=== PATIENT | female | born 1940 | race Caucasian/White ===

== ENCOUNTER 2016-12-16 08:35 | Outpatient (CLI) | payer OTHER | END 2016-12-16 08:36 | disposition home or self-care (01) | DX: Z13.820 Encounter for screening for osteoporosis (principal); M81.0 Age-related osteoporosis without current pathological fracture ==

== ENCOUNTER 2016-12-16 08:36 | Outpatient (CLI) | payer OTHER | END 2016-12-16 08:37 | disposition home or self-care (01) | DX: Z12.31 Encounter for screening mammogram for malignant neoplasm of breast (principal) ==

== ENCOUNTER 2017-03-02 11:03 | Outpatient (CLI) | payer OTHER ==
--- NOTE | 2017-03-02 17:48 | CT Report ---
CT SINUSES WITHOUT CONTRAST: 03/02/2017 CLINICAL INDICATION: Sinus pressure, pain, history of nasal polyp. Axial CT images of the paranasal sinuses were obtained without contrast, following which sagittal and coronal reconstructions were performed. In accordance with CT protocol optimization, one or more of the following dose reduction techniques w ere utilized for this exam: automated exposure control, adjustment of mA and/or KV based on patient size, or use of iterative reconstructive technique. There is minimal mucosal thickening in the inferior left maxillary sinus. Previously seen right maxi llary sinus disease has resolved. The frontal, ethmoid, and sphenoid sinuses are clear. The ostiome atal units are patent. The nasal septum is midline. The visualized intraorbital contents are unrema rkable. No osseous destruction is seen. IMPRESSION: MINIMAL LEFT MAXILLARY MUCOSAL THICKENING, COMPATIBLE WITH CHRONIC SINUS DISEASE. JOB #: [id number] EXT JOB #:[id number]
== END 2017-03-02 11:04 | disposition home or self-care (01) ==
LOC: DI 11:03
PROVIDERS: ATTEND Physician Assistant
DX: R51 Headache (principal)
CPT/HCPCS: 70486

== ENCOUNTER 2017-07-26 21:07 | Outpatient (CLI) | payer OTHER ==
--- NOTE | 2017-07-26 22:20 | Ultrasound Preliminary Report ---
Exam: US DUPLEX EXT VEINS RIGHT IMPRESSION: 1. No right lower extremity deep venous thrombosis. 2. 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 Consider further characterization with MRI in se tting of growth or pain. [facility] SITE ID: [id number]
--- NOTE | 2017-07-26 22:22 | Ultrasound Report ---
EXAM: RIGHT LOWER EXTREMITY VENOUS ULTRASOUND EXAM DATE: 07/26/2017 10:00 PM. CLINICAL HISTORY: R CALF PAIN,SUPERFICIAL THROMBUS. COMPARISON: None. TECHNIQUE: Real-time sonographic vascular imaging was performed by the commissioner of relocation services through the lower extremity utilizing both color-flow and Doppler spectral analysis. Multiple consumer sales representative static rigoberto ges were saved for review. FINDINGS: Common Femoral Vein (CFV): Normal. CFV-GSV Junction: Normal. Profunda Femoral Vein (PFV): Normal. Femoral Vein (FV) Prox: Normal. Femoral Vein (FV) Mid: Normal. Femoral Vein (FV) Dist: Normal. Popliteal Vein: Normal. Posterior Tibial Veins: Normal. Peroneal Veins: Normal. Contralateral Side CFV: Normal. Other: There is an avascular, ill-defined 2.4 x 0.9 x 2 cm hyperechoic soft tissue focus posterior me dial aspect of the knee. IMPRESSION: 1. No right lower extremity deep venous thrombosis. 2. 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 Consider further characterization with MRI in se tting of growth or pain. [facility] Referring Provider Line: [phone] SITE ID: [id number]
== END 2017-07-26 21:08 | disposition home or self-care (01) ==
LOC: DI 21:07
PROVIDERS: ATTEND Registered Nurse
DX: M79.661 Pain in right lower leg (principal)

== ENCOUNTER 2017-08-12 11:34 | Outpatient (CLI) | payer OTHER ==
--- NOTE | 2017-08-12 17:56 | XRAY Report ---
DATE OF SERVICE: 08/12/2017 EXAM: THREE VIEW BILATERAL KNEES: 08/12/2017 CLINICAL INDICATION: Pain. COMPARISON: 01/07/2016 bilateral four view knees. FINDINGS: AP, lateral, and sunrise views of the bilateral knees were obtained. 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 There is no evidence of fracture or hardware c omplication. No effusion is present on either side. IMPRESSION: STABLE BILATERAL KNEE REPLACEMENTS. NO EVIDENCE OF FRACTURE OR HARDWARE COMPLICATION. TD: 08/12/2017 17:01
== END 2017-08-12 11:35 | disposition home or self-care (01) ==
LOC: DI.S 11:34
PROVIDERS: ATTEND Registered Nurse
DX: M25.562 Pain in left knee (principal); Z96.653 Presence of artificial knee joint, bilateral

== ENCOUNTER 2018-03-28 08:32 | Outpatient (CLI) | payer OTHER ==
[2018-03-28 11:51] LABS: CREATININE 0.8 mg/dL (0.4-1.0)
== END 2018-03-28 08:33 | disposition home or self-care (01) ==
LOC: LAB.F 08:32
PROVIDERS: ATTEND Podiatrist
DX: Z01.818 Encounter for other preprocedural examination (principal)
CPT/HCPCS: 36415; 82565; 85014; 85027

== ENCOUNTER 2018-08-01 09:58 | Outpatient (CLI) | payer OTHER ==
--- NOTE | 2018-08-01 17:57 | MRI Report ---
Reason: CERVICALGIA Procedure Date: 08/01/2018 Accession Number: [id number] / [id number] Procedure: MRI - Cervical Spine W/O CPT Code: FULL RESULT: EXAM: MRI CERVICAL SPINE WITHOUT CONTRAST EXAM DATE: 08/01/2018 10:58 AM. CLINICAL HISTORY: CERVICALGIA. COMPARISONS: None. TECHNIQUE: Multiplanar, multisequence T1-weighted and fluid-sensitive sequences of the cervical spine without contrast. Other: None. FINDINGS: Neurologic Structures: The visualized posterior fossa structures are unremarkable. No signal abnormality in the visualized spinal cord. Alignment: Slight straightening of the normal cervical lordosis. No definite spondylolisthesis. Bone Marrow: No gross fractures or bone lesions. No marrow edema. Interspace Levels/Facets: Mild endplate degenerative change with mild loss of disk height and disk desiccation seen throughout the cervical spine greatest at C5-C6. C1-C2: Unremarkable. C2-C3: Tiny to small posterior disk osteophyte complex. No spinal canal stenosis. No definite neural foraminal narrowing. C3-C4: Small posterior disk osteophyte complex. Bilateral uncovertebral osteophyte and arthritic facet disease. Mild spinal canal stenosis. Mild left neural foraminal narrowing. C4-C5: Small posterior disk osteophyte complex that abuts the ventral aspect of the cervical cord. Bilateral uncovertebral osteophyte and arthritic facet disease. Mild to moderate spinal canal stenosis. Moderate right and mild to moderate left neural foraminal narrowing. C5-C6: Small to moderate broad-based disk osteophyte complex that abuts the ventral aspect of the cervical cord. Bilateral uncovertebral osteophyte and arthritic facet disease. Mild to moderate spinal canal stenosis. Moderate to severe bilateral neural foraminal narrowing. C6-C7: Small posterior disk osteophyte complex. Bilateral uncovertebral osteophyte and arthritic facet disease. Mild spinal canal stenosis. Moderate to severe right and moderate left neural foraminal narrowing. C7-T1: Unremarkable. Musculature: Normal. No edema or fatty atrophy. Other: The paravertebral and prevertebral soft tissues are normal. IMPRESSION: 1. Slight straightening of the normal cervical lordosis. 2. Multilevel degenerative changes. C3-C4: Mild spinal canal stenosis. Mild left neural foraminal narrowing. C4-C5: Mild to moderate spinal canal stenosis. Moderate right and mild to moderate left neural foraminal narrowing. C5-C6: Mild to moderate spinal canal stenosis. Moderate to severe bilateral neural foraminal narrowing. C6-C7: Mild spinal canal stenosis. Moderate to severe right and moderate left neural foraminal narrowing. [facility]
== END 2018-08-01 09:59 | disposition home or self-care (01) ==
LOC: DI 09:58
PROVIDERS: ATTEND Registered Nurse
DX: M50.31 Other cervical disc degeneration, high cervical region (principal); M47.9 Spondylosis, unspecified; M48.02 Spinal stenosis, cervical region
CPT/HCPCS: 72141

== ENCOUNTER 2021-07-10 11:01 | Outpatient (CLI) | payer OTHER ==
--- NOTE | 2021-07-12 06:57 | XRAY Report ---
PROCEDURE: Shoulder 3 View RT INDICATIONS: PAIN IN RIGHT SHOULDER TECHNIQUE: 3 views of the shoulder were acquired. COMPARISON: None. FINDINGS: Bones: No fractures or dislocations. There is a lytic lesion with sclerotic margin seen involving me dial cortex of proximal right humeral shaft with increased sclerosis and mild adjacent cortical thick ening. This was seen in 2016 chest radiograph and is unchanged in size. Visualized ribs appear intact . Soft tissues: No suspicious soft tissue calcifications. IMPRESSION: Moderate right shoulder joint osteoarthritis. No acute fracture or dislocation. Moderate right acromioclavicular joint and glenohumeral joint osteoarthritic changes are seen. Indeterminant lytic lesion involving medial cortex of proximal right humeral shaft with interval increased sclerosi s in this area. Finding could represent benign process such as nonossifying fibroma. Clinical correla tion is recommended. If indicated, MRI of right humerus can be done without and with contrast for fur ther evaluation of this area. Reviewed by: Chan Mueller MD on 07/10/2021 1:55 PM PST Approved by: Chan Mueller MD on 07/10/2021 1:55 PM PST Station ID: [id number]
== END 2021-07-10 11:02 | disposition home or self-care (01) ==
LOC: DI 11:01
PROVIDERS: ATTEND Registered Nurse
DX: M19.011 Primary osteoarthritis, right shoulder (principal); M89.9 Disorder of bone, unspecified

== ENCOUNTER 2021-08-03 10:46 | Outpatient (CLI) | payer OTHER ==
[2021-08-03] MEDS ORDERED: GADOBUTROL 10 MMOL/10 ML VIAL ONE (10:58)
--- NOTE | 2021-08-03 14:02 | MRI Report ---
PROCEDURE: Upper Arm/Humerus RT W/WO INDICATIONS: LYTIC LESION OF BONE TECHNIQUE: Noncontrast coronal T1 spin echo and STIR; coronal T1 VISTA SPAIR; sagittal STIR; axial T1 spin echo and T2 fast spin echo with fat saturation through the right humerus. After the administration of int ravenous contrast material, additional sequences were obtained including: axial in and out of phase T 1 spin echo, sagittal T1 spin echo with fat saturation, and coronal T1 VISTA SPAIR. COMPARISON: Shoulder radiographs 07/10/2021 FINDINGS: Image quality: Excellent. Bones: Focal cortical irregularity is seen at the proximal humeral diaphysis, at the site of the shadi ent lesion seen on prior radiographs from 07/10/2021. There is mild focal osseous enhancement at this lesion without associated edema. Findings are suspected to the secondary to a prior subpectoral mounika ps tenodesis. The visualized bone marrow demonstrates normal signal on all sequences. No acute trabec ular bone injury. Soft tissues: The proximal portion of the biceps long head tendon is not seen, most likely secondary to prior tenodesis. Portion of the biceps tendon appears to be continuous with the bone lesion in th e humerus. The shoulder structures are not well visualized, as this is not a detailed evaluation of t he shoulder. The scanned muscles demonstrate normal overall bulk and internal signal. Subcutaneous t issues appear normal as well. No enhancing soft tissue masses are present. IMPRESSION: Focal osseous lesion in the proximal humeral diaphysis as seen on prior radiographs, which appears to be continuous with the biceps long head tendon, most likely represents postsurgical changes related to a prior subpectoral biceps tenodesis. There is no associated osseous edema. No separate osseous ma ss is seen. No suspicious soft tissue enhancement. Recommend correlation with surgical history and pr ior operative notes. Reviewed by: Alfa Calloway MD on 08/03/2021 2:01 PM PST Approved by: Alfa Calloway MD on 08/03/2021 2:01 PM PST Station ID: [id number]
[2021-08-03] MEDS ORDERED: GADOBUTROL 10 MMOL/10 ML VIAL IVP ONE (16:19)
== END 2021-08-03 10:47 | disposition home or self-care (01) ==
LOC: DI 10:46
PROVIDERS: ATTEND Registered Nurse
DX: M89.9 Disorder of bone, unspecified (principal)
CPT/HCPCS: 73220; A9585

== ENCOUNTER 2021-11-08 22:23 | Emergency (ER) | payer OTHER ==
[2021-11-08 22:44] LABS: BASOPHILS % (AUTO) 0.4 %; EOSINOPHILS # (AUTO) 0.2 10^3/uL (0.0-0.7); EOSINOPHILS % (AUTO) 2.7 %; HCT - HEMATOCRIT 42.6 % (37.0-47.0); HGB - HEMOGLOBIN 13.6 g/dL (12.0-16.0); LYMPHOCYTES # (AUTO) 3.2 10^3/uL (1.5-3.5); MEAN CORPUSCULAR HEMOGLOBIN 29.2 pg (27.0-31.0); MEAN CORPUSCULAR HGB CONC 31.9 g/dL (32.0-36.0); MEAN CORPUSCULAR VOLUME 91.6 fL (81.0-99.0); MEAN PLATELET VOLUME 10.3 fL (7.9-10.8); MONOCYTES # (AUTO) 0.8 10^3/uL (0.0-1.0); MONOCYTES % (AUTO) 10.2 %; NEUTROPHILS # (AUTO) 3.9 10^3/uL (1.5-6.6); NEUTROPHILS % (AUTO) 47.6 %; PLT - PLATELET COUNT 261 10^3/uL (130-450); RED BLOOD COUNT 4.65 10^6/uL (4.20-5.40); RED CELL DISTRIBUTION WIDTH 14.8 % (12.0-15.0); WHITE BLOOD COUNT 8.1 x10^3/uL (4.8-10.8)
[2021-11-08] MEDS ORDERED: SODIUM CHLORIDE 0.9% 1,000 ML IV STA (22:48)
[2021-11-08 22:57] LABS: ALBUMIN 3.9 g/dL (3.2-5.5); ALBUMIN/GLOBULIN RATIO 1.3 (1.0-2.2); ALKALINE PHOSPHATASE 65 IU/L (42-121); ALT ALANINE AMINOTRANSFERASE < 10 IU/L (10-60); AST ASPARTATE AMINOTRANSFERASE 19 IU/L (10-42); BILIRUBIN,TOTAL 0.4 mg/dL (0.2-1.0); BUN - BLOOD UREA NITROGEN 24 mg/dL (6-20); CALCIUM 8.6 mg/dL (8.5-10.3); CARBON DIOXIDE - CO2 22 mmol/L (21-32); CHLORIDE 106 mmol/L (101-111); CREATININE 0.9 mg/dL (0.4-1.0); GFR - MDRD 60 (>89); GLUCOSE 127 mg/dL (70-100); LIPASE 25 U/L (22-51); POTASSIUM 4.2 mmol/L (3.5-5.0); SODIUM 140 mmol/L (135-145); TOTAL PROTEIN 6.9 g/dL (6.7-8.2)
--- NOTE | 2021-11-08 23:20 | ED Physician Documentation ---
PD HPI FOCAL NEURO - Stated complaint Stated Complaint: WEAKNESS - Chief complaint Chief Complaint: Neuro - History obtained from History obtained from: Patient, Family - History of Present Illness Timing - onset: How many days ago (3) Timing - duration: Days (3) Timing - details: Gradual onset, Still present Severity of deficit: Moderate Weakness: Face, Arm, Leg, Left Numbness: No: Face, Arm, Hand, Leg, Foot, Right, Left Associated symptoms: No: Headache, Nausea / vomiting, Seizure, Syncope, Fall, Head injury, Chest pain, Neck pain, Back pain, Fever Baseline status: positive: A&OX3, ambulatory, indep Similar symptoms before: Has not had sx before Recently seen: Not recently seen - Additional information Additional information: Previously well 81-year-old female with a history of Parkinson's disease noticed at that her left leg was dragging a bit about 3 days ago. She thought maybe she had hurt herself or was standing for too long. She noticed some weakness to her left arm and hand yesterday. Today her daughter arrived back home and noticed a facial droop. The patient has no speech difficulty and she otherwise feels well. She has not recently been ill. Review of Systems Constitutional: denies: Fever Eyes: denies: Loss of vision, Decreased vision Ears: denies: Ear pain Nose: denies: Rhinorrhea / runny nose, Congestion Throat: denies: Sore throat Cardiac: reports: Calf pain (Cramping to the left leg 3 days ago). denies: Chest pain / pressure, Palpitations, Pedal edema Respiratory: denies: Dyspnea GI: denies: Abdominal Pain, Nausea, Vomiting, Constipation, Diarrhea : denies: Dysuria, Frequency Skin: denies: Rash Musculoskeletal: denies: Neck pain, Back pain, Extremity pain Neurologic: reports: Focal weakness. 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: Other HEENT: Cataracts - Present Medications Home Medications: Ambulatory Orders Medication Instructions Recorded Confirmed Ldopa-Cdopa [id number] 01/26/16 Meloxicam 7.5 mg PO DAILY 01/26/16 01/26/16 Oxybutynin [Ditropan] 5 mg PO DAILY 01/26/16 01/26/16 Oxycodone HCl/Acetaminophen 1 - 2 tab PO Q4H PRN #20 tablet 01/26/16 [Percocet 5-325 mg Tablet] Pantoprazole Sodium 40 mg PO DAILY 01/26/16 01/26/16 Sertraline HCl 100 mg PO DAILY 01/26/16 01/26/16 Trazodone HCl 50 mg PO DAILY 01/26/16 01/26/16 - Allergies Allergies/Adverse Reactions: Allergies Allergy/AdvReac Type Severity Reaction Status Date / Time No Known Drug Allergies Allergy Verified 11/08/21 22:35 - Social History Does the pt smoke?: No Smoking Status: Never smoker Does the pt drink ETOH?: No Does the pt have substance abuse?: No - Immunizations Immunizations are current?: Yes - POLST Patient has POLST: No PD ED PE NORMAL - Vitals Vital signs reviewed: Yes (Hypertensive mild) - General General: Alert and oriented X 3, No acute distress, Well developed/nourished, O ther (No evidence of speech latency or delay in execution of motor commands.) - HEENT HEENT: Atraumatic, PERRL, EOMI, Other (81-year-old female with an obvious left facial droop that is mild. She is able to clench her eye tightly.) - Neck Neck: Supple, no meningeal sign, No bony TTP - Cardiac Cardiac: RRR, No murmur - Respiratory Respiratory: No respiratory distress, Clear bilaterally - Abdomen Abdomen: Normal bowel sounds, Soft, Non tender, Non distended, No organomegaly - Back Back: No CVA TTP, No spinal TTP - Derm Derm: Normal color, Warm and dry, No rash - Extremities Extremities: No deformity, No edema - Neuro Neuro: Alert and oriented X 3, No sensory deficit, Normal speech Eye Opening: Spontaneous Motor: Obeys Commands Verbal: Oriented GCS Score: 15 - Psych Psych: Normal mood, Normal affect NIHSS - Time Time: 22:30 - Level of Consciousness Level of consciousness: (0) Alert, Keenly responsive LOC Questions: (0) Answers both Q's correct LOC Commands: (0) Performs both correctly - Gaze Best Gaze: (0) Normal - Visual Visual: (0) No loss - Facial Palsy Facial Palsy: (2) Partial paralysis - Motor Arms (both separate) Motor Arm (right): (0) No drift Motor Arm (left): (1) Drift - Motor Legs (both separate) Motor Leg (right): (0) No drift Motor Leg (left): (1) Drift - Limb Ataxia Limb Ataxia: (0) Absent - Sensory Sensory: (0) Normal - Best Language Best Language: (0) No aphasia - Dysarthria Dysarthria: (0) Normal - Extinction and Inattention (formally neg Extinction and inattention: (0) No abnormality - Total Score/Results Total Score/Result: 4 Results - Vitals Vitals: Vital Signs - 24 hr 11/08/21 11/09/21 11/09/21 22:25 01:30 02:56 Temperature 36.6 C Heart Rate 74 68 60 Respiratory 20 18 18 Rate Blood Pressure 169/85 H 121/97 H 156/60 H O2 Saturation 97 98 99 Oxygen O2 Source Room air - EKG (time done) 2308 Rate: Rate (enter#) (71) Rhythm: NSR, Other (atifact from Parkinsons is present) Ischemia: Normal ST segments Other comments: Other comments (baseline artifact ) Compare to prior EKG: Old EKG unavailable Computer interpretation: Disagree with computer (computer reads afib. Looks like a lot of quiver artifact with normal sinus in leads without artifact. ) - Labs Labs: Laboratory Tests 11/08/21 11/08/21 11/08/21 22:37 22:37 22:51 WBC 8.1 RBC 4.65 Hgb 13.6 Hct 42.6 MCV 91.6 MCH 29.2 MCHC 31.9 L RDW 14.8 Plt Count 261 MPV 10.3 Neut # (Auto) 3.9 Lymph # (Auto) 3.2 [place] # (Auto) 0.8 Eos # (Auto) 0.2 Baso # (Auto) 0.0 Absolute Nucleated RBC 0.00 Nucleated RBC % 0.0 Sodium 140 Potassium 4.2 Chloride 106 Carbon Dioxide 22 Anion Gap 12.0 BUN 24 H Creatinine 0.9 Estimated GFR (MDRD) 60 L Glucose 127 H Lactic Acid 1.8 Calcium 8.6 Total Bilirubin 0.4 AST 19 ALT < 10 L Alkaline Phosphatase 65 Total Protein 6.9 Albumin 3.9 Globulin 3.0 Albumin/Globulin Ratio 1.3 Lipase 25 Urine Color Urine Clarity Urine pH Ur Specific [place] Urine Protein Urine Glucose (UA) Urine Ketones Urine Occult Blood Urine Nitrite Urine Bilirubin Urine Urobilinogen Ur Leukocyte Esterase Urine RBC Urine WBC Ur Squamous Epith Cells Urine Bacteria Ur Microscopic Review Urine Culture Comments 11/09/21 00:40 WBC RBC Hgb Hct MCV MCH MCHC RDW Plt Count MPV Neut # (Auto) Lymph # (Auto) [place] # (Auto) Eos # (Auto) Baso # (Auto) Absolute Nucleated RBC Nucleated RBC % Sodium Potassium Chloride Carbon Dioxide Anion Gap BUN Creatinine Estimated GFR (MDRD) Glucose Lactic Acid Calcium Total Bilirubin AST ALT Alkaline Phosphatase Total Protein Albumin Globulin Albumin/Globulin Ratio Lipase Urine Color YELLOW Urine Clarity CLEAR Urine pH 6.0 Ur Specific [place] <=1.005 Urine Protein NEGATIVE Urine Glucose (UA) NEGATIVE Urine Ketones NEGATIVE Urine Occult Blood TRACE-INTA Urine Nitrite NEGATIVE Urine Bilirubin NEGATIVE Urine Urobilinogen 0.2 (NORMAL) Ur Leukocyte Esterase TRACE H Urine RBC 0-5 Urine WBC 0-3 Ur Squamous Epith Cells RARE Squamous Urine Bacteria Moderate H Ur Microscopic Review INDICATED Urine Culture Comments INDICATED - Rads (name of study) CT head Radiology: Prelim report reviewed (Impression: 1. Ill-defined hypodensity involving the right basal ganglia and nicole [facility] consistent with a subacute infarct. No acute intracranial hemorrhage.), EMP read indepedently, See rad report CTA head Radiology: Prelim report reviewed (Impression: 1. Wide patency of the intracranial arterial circulation. No intracranial aneurysm or AVM. Unremarkable CT enhancement of the brain parenchyma.), EMP read indepedently, See rad report CAT neck Radiology: Prelim report reviewed (Impression: 1. There is no stenosis of the right common carotid artery bifurcation and proximal right internal carotid artery by NASCET criteria. There is no stenosis of the left common carotid artery bifurcation and proximal left internal carotid artery based on these criteria. ), Final report received ( Wide patency of the cervical vertebral arteries.), EMP read indepedently, See rad report Procedures - IVC sono (time) 22:40 Bedside IVC sono: IVC measures (cm) (1.01), IVC collapsed c insp (cm) (complete), Dehydration (est 1-2 liter deficit) PD MEDICAL DECISION MAKING - ED course Complexity details: reviewed old records, reviewed results, re-evaluated patient, considered differential, d/w patient, d/w family, d/w mergers and acquisitions consultant ([facility] neurology [place], Recommends hospitalization for monitoring at least 12 hours, PT/OT eval, and ehco after obtaining a CTA head and neck. Spoke with Mahmood and we are unable to host secondary to inability to perform echo. ) ED course: 81-year-old female with a history of Parkinson's has developed stroke symptoms approximately 3 days ago. Her history is concerning for a slow progression of symptoms over a 3-day period of time. Her deficit is mild and the patient is functioning at home. She is mildly dehydrated on interrogation the inferior vena cava and she is administered intravenous saline. Her CAT scan confirms a subacute infarct and she will need admission for a completed stroke work up. We do not have echo available here and we will not be able to complete the stroke work-up here. We have had difficulty transferring patients recently so I consulted Dr. Carranza the neurologist on-call for the patient and she recommended hospitalization for the purpose of at least 12 hours of monitoring, PT and OT evaluation and echocardiogram. She recommended aspirin and atorvastatin as well as a hemoglobin A1c. She recommended transfer to complete this. Departure - Departure Disposition: 02 Transfer Acute Care Hosp Clinical Impression: Cerebrovascular accident (CVA) Qualifiers: CVA mechanism: unspecified Qualified Code(s): I63.9 - Cerebral infarction, unspecified Condition: Stable Discharge Date/Time: 11/09/21 03:37
--- NOTE | 2021-11-08 23:39 | CT Report ---
PROCEDURE: HEAD WO INDICATIONS: L sided weakness X 3 d TECHNIQUE: Noncontrast 4.5 mm thick angled axial sections acquired from the foramen magnum to the vertex. For r adiation dose reduction, the following was used: automated exposure control, adjustment of mA and/or kV according to patient size. COMPARISON: None. FINDINGS: Image quality: Excellent. CSF spaces: There is mild cerebral volume loss with prominence of the ventricles and sulci. Basal ci sterns are patent. No extra-axial fluid collections. Brain: There are indistinct hypodensities within the right basal ganglia and nicole radiata consiste nt with a subacute infarct. A few periventricular and subcortical white matter hypodensities are also demonstrated consistent with mild chronic small vessel ischemic changes. No intracranial hemorrhage, mass, or mass effect. There are subcortical and periventricular white matter hypodensities consisten t with chronic small vessel ischemic changes. Skull and face: Calvarium and visualized facial bones are intact, without suspicious lesions. Sinuses: Visualized sinuses and mastoids are clear. IMPRESSION: 1. Ill-defined hypodensity involving the right basal ganglia and nicole radiata consistent with a sub acute infarct. 2. No acute intracranial hemorrhage. Findings discussed with Dr. Avalos on 11/08/2021 at 11:35 PM. Reviewed by: Vinay Giron MD on 11/08/2021 11:38 PM PDT Approved by: Vinay Giron MD on 11/08/2021 11:38 PM PDT Station ID: [id number]
[2021-11-09 00:45] LABS: BILIRUBIN,URINE NEGATIVE (NEGATIVE); GLUCOSE, URINE (UA) NEGATIVE (NEGATIVE); KETONES,URINE (UA) NEGATIVE (NEGATIVE); LEUKOCYTE ESTERASE, URINE TRACE (NEGATIVE); NITRITE,URINE NEGATIVE (NEGATIVE); OCCULT BLOOD,URINE TRACE-INTA (NEGATIVE); PROTEIN,URINE NEGATIVE (NEGATIVE); UROBILINOGEN,URINE 0.2 (NORMAL) E.U./dL (NORMAL)
[2021-11-09 00:46] LABS: CLARITY,URINE CLEAR (CLEAR)
[2021-11-09 00:51] LABS: BACTERIA,URINE Moderate /HPF (None Seen); RBC,URINE 0-5 /HPF (0-5); SQUAMOUS EPITHELIAL CELL,UR RARE Squamous (<= Few); WBC,URINE 0-3 /HPF (0-5)
[2021-11-09] MEDS ORDERED: ASPIRIN 325 MG TABLET PO STA (01:19)
[2021-11-09] MEDS ORDERED: IOVERSOL 320 100 ML VIAL IVP ONE ×2 (01:35→02:39)
[2021-11-09] MEDS ORDERED: ATORVASTATIN 40 MG TABLET PO STA (02:39)
[2021-11-09 02:56] VITALS: BP 156/60
--- NOTE | 2021-11-09 07:46 | CT Report ---
PROCEDURE: ANGIO HEAD W/WO INDICATIONS: L sided facial droop, L weakness CONTRAST: IV CONTRAST: Optiray 320 ml: 100 PO CONTRAST: *NO PO CONTRAST TECHNIQUE: Precontrast 4.5 mm thick angled axial sections acquired from the foramen magnum to the vertex. Afte r the administration of intravenous contrast, 1 mm thick sections acquired through the [place] of [place] is. Postcontrast 4.5 mm thick sections then re-acquired from the foramen magnum to the vertex. 3-di mensional [id number]-pivhahteyo (MIP) and/or volume rendering reformats were acquired of the c entral intracranial vasculature. For radiation dose reduction, the following was used: automated ex posure control, adjustment of mA and/or kV according to patient size. COMPARISON: CT head 11/08/2021. FINDINGS: Image quality: Excellent. Anterior circulation: Intracranial internal carotid arteries are normal in flow. The calcifications noted in the cavernous and clinoid segments of the internal carotid arteries bilat erally which causes mild narrowing of the vessels. The flow within the paired anterior cerebral arter ies is normal and symmetric. The flow within the middle cerebral arteries is normal and symmetric. The anterior communicating artery is seen. No aneurysms are seen. Posterior circulation: Visualized portions of the vertebral arteries demonstrate normal caliber, and join to form a normal appearing basilar artery. Flow within the posterior cerebral arteries is norm al and symmetric. No aneurysms are seen. Dural sinuses and jugular normal postcontrast enhancement. CSF spaces: Ventricles are normal in size and shape. Basal cisterns are patent. No extra-axial flu id collections. Brain: Hypodensities involving the right basal ganglia and right nicole radiata compatible subacute infarcts. No midline shift. No intracranial bleeds or masses. Red-white matter interface appears i ntact. Skull and face: Calvarium and facial bones appear intact, without suspicious lesions. Sinuses: Visualized sinuses and mastoids are clear. IMPRESSION: 1. Subacute infarcts involving the right basal ganglia and right nicole radiata. 2. No large vessel occlusion, hemodynamically significant vascular stenosis, vascular dissection or a neurysm. Reviewed by: Minerva Bahena MD, PhD on 11/09/2021 7:45 AM PDT Approved by: Minerva Bahena MD, PhD on 11/09/2021 7:45 AM PDT Station ID: [id number]
--- NOTE | 2021-11-09 07:50 | CT Report ---
PROCEDURE: ANGIO NECK W INDICATIONS: L sided facial droop, L weakness CONTRAST: IV CONTRAST: Optiray 320 ml: 100 PO CONTRAST: *NO PO CONTRAST TECHNIQUE: After the administration of intravenous contrast, 1.5 mm axial sections acquired from the aortic arch to the [place]. Coronal 3-D maximum intensity projection (MIP) and/or volume rendering ref ormats were then performed. For radiation dose reduction, the following was used: automated exposur e control, adjustment of mA and/or kV according to patient size. COMPARISON: None. FINDINGS: Image quality: Excellent. Carotid system: The great vessels demonstrate a conventional anatomy as they arise from the aortic a rch. The origins of the common carotid arteries appear patent. The common carotid arteries demonstr ate normal calibers and courses. Mild atherosclerotic plaque noted in the origin of the right interna l carotid artery which causes less than 50% stenosis of the vessel. Left internal carotid artery is f ully patent. Posterior circulation: The origins of the vertebral arteries appear patent. The more superior porti ons of the vertebral arteries demonstrate normal course and caliber. They join to form a normal appe aring basilar artery. Soft tissues: Visualized neck soft tissues demonstrate no suspicious abnormalities. The thyroid is normal in size and there are no incidental findings. Bones: No suspicious bony lesions. Visualized cervical spine appears normally aligned. IMPRESSION: 1. Less than 50% stenosis of the origin of the right internal carotid artery. 2. Left internal carotid artery is fully patent. 3. Vertebral arteries are fully patent. The estimate of stenosis included in the report of the imaging study was calculated using the NASCET method Reviewed by: Minerva Bahena MD, PhD on 11/09/2021 7:49 AM PDT Approved by: Minerva Bahena MD, PhD on 11/09/2021 7:49 AM PDT Station ID: [id number]
[2021-11-09 13:06] LABS: ESTIMATED AVERAGE GLUCOSE 123 mg/dL (70-100); HEMOGLOBIN A1c% 5.9 % (4.27-6.07)
== END 2021-11-09 03:37 | disposition short-term general hospital (02) ==
LOC: ED 22:23
DX: I63.9 Cerebral infarction, unspecified (principal); R29.704 NIHSS score 4; G20 Parkinson's disease; E86.0 Dehydration
CPT/HCPCS: 36415; 70450; 70496; 70498; 80053; 81001; 83036; 83605; 83690; 85025; 87086; 87181; 93005; 96360; 99283; 99285; A9270; Q9967; 81003

== ENCOUNTER 2021-11-09 03:33 | Outpatient (CLI) | payer OTHER | END 2021-11-09 03:34 | disposition short-term general hospital (02) | LOC: EMS 03:33 | PROVIDERS: ATTEND Emergency Medicine | DX: I63.89 Other cerebral infarction (principal); G20 Parkinson's disease | CPT/HCPCS: A0425; A0428 ==

== ENCOUNTER 2022-03-09 10:06 | Outpatient (CLI) | payer OTHER ==
--- NOTE | 2022-03-09 15:56 | XRAY Report ---
PROCEDURE: Knee 3 View BILAT INDICATIONS: HIST OF BILATERAL KNEE REPLACEMENT TECHNIQUE: 3 views of the bilateral knee(s) were acquired. COMPARISON: None. FINDINGS: Postsurgical changes of bilateral total knee arthroplasties. Normal appearance of the hardware. No ac [place] abnormality otherwise. IMPRESSION: Normal appearance of bilateral total knee arthroplasties. Reviewed by: Alfredo Phillips MD on 03/09/2022 3:55 PM PDT Approved by: Alfredo Phillips MD on 03/09/2022 3:55 PM PDT Station ID: [id number]
== END 2022-03-09 10:07 | disposition home or self-care (01) ==
LOC: DI 10:06
PROVIDERS: ATTEND Registered Nurse
DX: M25.362 Other instability, left knee (principal); Z96.653 Presence of artificial knee joint, bilateral

== ENCOUNTER 2023-07-27 11:00 | Outpatient (CLI) | payer OTHER ==
--- NOTE | 2023-07-27 16:21 | XRAY Report ---
PROCEDURE: Thoracic Spine 2 View INDICATIONS: BACK PAIN TECHNIQUE: 3 views of the thoracic spine were acquired. COMPARISON: CXR 02/05/2020, 03/08/2015. FINDINGS: Bones: Mild T12 compression fracture. No dislocations. No suspicious bony lesions. 12 pairs of rib s are noted, and appear intact where visualized. Soft tissues: No paravertebral stripe thickening. IMPRESSION: Mild T12 compression fracture. New in the interval compared to 2019. Reviewed by: Eric Segura MD on 07/27/2023 4:20 PM PST Approved by: Eric Segura MD on 07/27/2023 4:20 PM PST Station ID: [id number]
--- NOTE | 2023-07-27 16:23 | XRAY Report ---
PROCEDURE: Lumbar Spine 2 View INDICATIONS: BACK PAIN TECHNIQUE: 3 views of the lumbar spine were acquired. COMPARISON: Same day thoracic spine radiographs. CXR 02/05/2020. FINDINGS: Bones: 5 [id number] vertebrae are present. Mild scoliosis. Mild T12 compression fracture. Multi level DDD. No suspicious bony lesions. Soft tissues: Overlying bowel gas pattern is normal. No suspicious soft tissue calcifications. IMPRESSION: Mild T12 compression fracture. New in the interval compared to 2019. Reviewed by: Eric Segura MD on 07/27/2023 4:22 PM PST Approved by: Eric Segura MD on 07/27/2023 4:22 PM PST Station ID: [id number]
== END 2023-07-27 11:01 | disposition home or self-care (01) ==
LOC: DI 11:00
PROVIDERS: ATTEND Physician Assistant
DX: M54.50 Low back pain, unspecified (principal); M48.54XA Collapsed vertebra, not elsewhere classified, thoracic region, initial encounter for fracture

== ENCOUNTER 2024-04-05 14:32 | Outpatient (CLI) | payer OTHER ==
--- NOTE | 2024-04-06 18:22 | XRAY Report ---
Knee 3V BL HISTORY: 84 years of age, HISTORY OF BILAT TOTAL KNEE REPLACEMENT TECHNIQUE: Knee 3V BL COMPARISON: 03/09/2022. FINDINGS/IMPRESSION: Right knee: Status post right total knee arthroplasty, in near-anatomic alignment. No hardware compli cation. No right knee effusion. Left knee: Status post left total knee arthroplasty, in near-anatomic alignment. No hardware complica tion. Small ossification anterior to the distal femur metadiaphysis, unchanged from prior exam. Trace left knee effusion. Reviewed by: Leigh Pena MD on 04/06/2024 6:21 PM PDT Approved by: Leigh Pena MD on 04/06/2024 6:21 PM PDT Station ID: [id number]
== END 2024-04-05 14:33 | disposition home or self-care (01) ==
LOC: DI 14:32
PROVIDERS: ATTEND Registered Nurse
DX: Z96.653 Presence of artificial knee joint, bilateral (principal)

== ENCOUNTER 2024-05-11 15:16 | Outpatient (CLI) | payer OTHER ==
--- NOTE | 2024-05-11 16:28 | XRAY Report ---
PROCEDURE: Lumbar Spine 2-3V INDICATIONS: LUMBOSACRAL PAIN TECHNIQUE: 3 views of the lumbar spine were acquired. COMPARISON: 07/27/2023 FINDINGS: Surgical change: None. Bones: 5 [id number]-ved-[id number] vertebrae are present. Convex right scoliosis centered at L3. Slightly prog ressed compression deformity of the T12 vertebral body. Moderate disc height loss at all levels. Face t arthrosis of L4-S1. No suspicious bony lesions. Soft tissues: Overlying bowel gas pattern is normal. No suspicious soft tissue calcifications. 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 Slightly progressed compression deformity of the T12 vertebral body, without endplate retropulsion. Reviewed by: Tono Santoro MD on 05/11/2024 4:27 PM PDT Approved by: Tono Santoro MD on 05/11/2024 4:27 PM PDT Station ID: [id number]
== END 2024-05-11 15:17 | disposition home or self-care (01) ==
LOC: DI 15:16
PROVIDERS: ATTEND Student in an Organized Health Care Education/Training Program
DX: M51.36 Other intervertebral disc degeneration, lumbar region (principal); M51.37 Other intervertebral disc degeneration, lumbosacral region; M47.816 Spondylosis without myelopathy or radiculopathy, lumbar region; M47.817 Spondylosis without myelopathy or radiculopathy, lumbosacral region; M48.54XA Collapsed vertebra, not elsewhere classified, thoracic region, initial encounter for fracture